=== PATIENT | male | born 1950 | race Caucasian/White ===

== ENCOUNTER → 2017-01-20 | Outpatient (CLI) | payer OTHER ==
[~2017-01-20] VITALS: Ht 188 cm; Wt 140.6 kg
[~2017-01-20] MED LIST: ASPIRIN81 M2 PO; ATORVASTATIN CA40 MG PO; [UNRECOGNIZED DRUG - OTHER] TP
--- NOTE | ~2017-01-20 | CATHLAB ---
[facility] Ida [place] [address] INVASIVE PROCEDURE REPORT Name: VARGAS MORALES Room #: REG [facility]#: [id number] Admission: 01/20/17 Attend Phys: Tao Henry MD Discharge: Date of : 50 Date of Service: 01/20/17 1709 Report #: [id number] THIS REPORT FOR: //name// CC: Tao Cuello DATE OF SERVICE: 01/20/2017 INDICATION: Unstable angina, abnormal stress test. Full risks, benefits and alternatives of cardiac catheterization were explained to the patient. All questions were answered. Informed consent was obtained. A Barbeau test was performed on the right radial artery. The right wrist area was prepped and draped in a sterile manner. Lidocaine was given subcutaneously. A 5-Maltese sheath was inserted into the right radial artery via modified Seldinger technique. Nitroglycerin and verapamil was introduced through the sheath. 5000 units of heparin was given through peripheral IV. CORONARY ANATOMY: Left main is a short segment, with no flow-limiting lesions. The LAD is a moderate to large size caliber vessel, travelling down the anterior wall and wrapping around the apex. There were no flow-limiting lesions in the LAD. There was only mild disease in the mid segment. The left circumflex artery is a moderate to large size caliber vessel, codominant. There is mild disease in the proximal segment, 20%. The first and second obtuse marginal arteries are of moderate size caliber with mild disease proximally. The terminal end of the left circumflex artery is a small caliber vessel with a severe stenosis. Medical therapy is recommended. The RCA supplies a small PDA. There is severe diffuse disease in the mid segment of the PDA. Medical therapy is recommended. A left ventriculogram was not performed in view of a tortuous right subclavian artery. At the end of the procedure, a Vasc band was applied for hemostasis. IMPRESSION: 1. Mild disease in the major epicardial vessels. 2. Severe stenosis in small caliber vessels including the terminal end of the left circumflex artery and PDA. Medical therapy is recommended. By: 1709 2236 Tao Henry MD /nt
[2017-01-20 09:56] VITALS: BP 133/69
[2017-01-20 09:59] LABS: HEMATOCRIT 40.2 % (42.0-52.0); HEMOGLOBIN 13.8 gm/dL (14.0-18.0); MCH 30.7 pg (26.0-34.0); MCHC 34.2 g/dL (28.0-37.0); MCV 89.8 fL (80.0-100.0); RBC 4.48 mil/uL (4.50-6.00); WBC 6.2 thou/uL (4.0-11.0)
[2017-01-20 10:07] LABS: CALCIUM 8.9 mg/dL (8.5-10.1); CREATININE 0.9 mg/dL (0.7-1.3); POTASSIUM 4.1 mmol/L (3.5-5.1)
== END ==
LOC: CATH 01-17 06:39
PROVIDERS: Internal Medicine Cardiovascular Disease
DX: I25.110 Atherosclerotic heart disease of native coronary artery with unstable angina pectoris (principal); R94.39 Abnormal result of other cardiovascular function study; I65.22 Occlusion and stenosis of left carotid artery; C44.91 Basal cell carcinoma of skin, unspecified; Z90.49 Acquired absence of other specified parts of digestive tract

== ENCOUNTER 2017-05-09 11:41 | Emergency (ER) | payer OTHER ==
[~2017-05-09] VITALS: Ht 188 cm; Wt 140.6 kg
--- NOTE | ~2017-05-09 | EKG ---
[place] [address] [facility] [place] [address] ELECTROCARDIOGRAM REPORT Name: VARGAS MORALES [facility] Jolie[facility] [id number] Admission: 05/09/17 Attend Phys: Discharge: 05/09/17 Date of : 50 Report #: [id number] THIS REPORT FOR: //name// [facility] ED Test Date: 2017-05-09 Test Time: 12:23:17 Pat Name: VARGAS MORALES Department: Room: Gender: M Well Service Floor Worker: Bradley CORTEZ : 1950 Requested By: Hair Salter Order Number: [id number] MD: Rodney Giang Measurements Intervals [place] Rate: 115 P: 0 NM: 152 QRS: -59 QRSD: 106 T: 49 QT: 323 QTc: 447 Interpretive Statements Atrial flutter with variable AV conduction Possible Anterolateral infarct, age indeterminate Compared to ECG 05/17/1997 14:50:00 Atrial flutter is replaced sinus rhythm Poor R wave progression is now present Electronically Signed On 05-10-2017 8:23:18 CDT by Rodney Giang [email or web address] <ELECTRONICALLY SIGNED> By: Rodney Giang MD, [facility] 05/10/17 0823 1223 1223 Rodney Giang MD, [facility] /EPI
[2017-05-09 12:45] LABS: ABSOLUTE NEUTROPHILS 4.3 thou/uL (1.4-8.2); BASOPHILS 0.4 % (0.0-2.0); EOSINOPHILS 0.9 % (0.0-3.0); HEMATOCRIT 41.9 % (42.0-52.0); HEMOGLOBIN 14.7 gm/dL (14.0-18.0); LYMPHOCYTES 23.8 % (24.0-44.0); MANUAL DIFF NO; MCH 31.1 pg (26.0-34.0); MCHC 35.1 g/dL (28.0-37.0); MCV 88.7 fL (80.0-100.0); MONOCYTES 8.6 % (1.0-8.0); PLATELET COUNT 210 thou/uL (150-400); POLYS 66.3 % (36.0-66.0); RBC 4.73 mil/uL (4.50-6.00); RDW 13.3 % (10.5-14.5); WBC 6.5 thou/uL (4.0-11.0)
[2017-05-09 13:08] LABS: ALBUMIN 3.8 g/dL (3.4-5.0); ALKALINE PHOSPHATASE 136 U/L (46-116); ANION GAP 8 mmol/L (7-16); BUN 9 mg/dL (7-18); CALCIUM 9.2 mg/dL (8.5-10.1); CHLORIDE 106 mmol/L (98-107); CO2 24 mmol/L (21-32); CREATININE 0.9 mg/dL (0.7-1.3); GLUCOSE 126 mg/dL (74-106); POTASSIUM 3.9 mmol/L (3.5-5.1); SGOT 23 U/L (15-37); SGPT 35 U/L (30-65); SODIUM 138 mmol/L (136-145); TOTAL BILIRUBIN 0.9 mg/dL (<0.1-1.0); TOTAL PROTEIN 7.6 g/dL (6.4-8.2); TROPONIN-I < 0.04 ng/mL (<0.04-0.07)
[2017-05-09] MEDS ORDERED: ANTIVERT25 MG PO (14:38)
== END 2017-05-09 14:54 | disposition home or self-care (01) ==
LOC: ER 11:41
PROVIDERS: Emergency Medicine
DX: R42 Dizziness and giddiness (principal); I25.10 Atherosclerotic heart disease of native coronary artery without angina pectoris; E78.5 Hyperlipidemia, unspecified; G47.30 Sleep apnea, unspecified; Z90.49 Acquired absence of other specified parts of digestive tract; Z85.828 Personal history of other malignant neoplasm of skin

== ENCOUNTER → 2017-09-22 | Outpatient (CLI) | payer OTHER ==
[~2017-09-22] MED LIST changes: +ANTIVERT25 MG PO
--- NOTE | ~2017-09-22 | 2DMMODE ---
[facility] [place] [address] 2 D/M-MODE ECHOCARDIOGRAM Name: VARGAS MORALES Room #: REG [facility]#: [id number] Admission: 09/22/17 Attend Phys: Tao Henry MD Discharge: Date of : 50 Date of Service: 09/22/17 1541 Report #: [id number] THIS REPORT FOR: //name// APPROVED REPORT Study performed: 09/22/2017 13:52:07 EXAM: Comprehensive 2D, Doppler, and color-flow Echocardiogram Patient Location: Out-Patient Status: routine BSA: 2.65 HR: 61 bpm BP: 145/77 mmHg Rhythm: NSR Other Information Study Quality: Good Indications Bradycardia, short of breath. Hx: CAD, HLP 2D Dimensions RVDd: 31.87 mm LVEF(%): 49.58 (>50%) IVSd: 13.27 (7-11mm) LVOT Diam: 22.83 (18-24mm) LVDd: 55.41 mm PWd: 12.82 (7-11mm) Ascending Ao: 42.35 (22-36mm) LVDs: 41.33 (25-40mm) Aortic Root: 38.09 mm Rojo's LVEF: 49.58 % Volumes Left Atrial Volume (Systole) Single Plane 4CH: 84.33 mL Single Plane 2CH: 70.44 mL LA ESV Index: 31.00 mL/m2 Aortic Valve AoV Peak Kirill.: 2.59 m/s AO Peak Gr.: 26.81 mmHg LVOT Max P.37 mmHg AO Mean Gr.: 14.18 mmHg AO V2 Mean: 1.79 m/s LVOT Max V: 1.16 m/s AO V2 VTI: 52.06 cm EMETERIO Vmax: 1.83 cm2 Mitral Valve [facility] [place] [address] 2 D/M-MODE ECHOCARDIOGRAM Name: VARGAS MORALES Room #: [facility]#: [id number] Admission: 09/22/17 Attend Phys: Tao Henry MD Discharge: Date of : 50 Date of Service: 09/22/17 1541 Report #: [id number] E/A Ratio: 0.9 MV Decel. Time: 293.80 ms MV E Max Kirill.: 0.80 m/s MV A Kirill.: 0.93 m/s MV PHT: 85.20 ms IVRT: 87.66 ms Pulmonary Valve PV Peak Kirill.: 1.50 m/s PV Peak Gr.: 9.00 mmHg Pulmonary Vein P Vein S: 0.58 m/s P Vein A: 0.32 m/s P Vein D: 0.45 m/s P Vein A Dur.: 133.8 msec P Vein S/D Ratio: 1.29 Tricuspid Valve TR Peak Kirill.: 2.62 m/s RAP Estimate: 10.00 mmHg TR Peak Gr.: 27.55 mmHg PA Pressure: 38.00 mmHg Left Ventricle The left ventricle is normal size. There is normal LV segmental wall motion. Mild concentric left ventricular hypertrophy. Left ventricular systolic function is normal. LVEF is 55%. Mild diastolic dysfunction is present (impaired relaxation pattern). Right Ventricle The right ventricle is normal size. The right ventricular systolic function is normal. Atria Left atrium is mildly dilated. Right atrium is at the upper limits of normal. Aortic Valve Aortic valve is thickened and calcified. Mild aortic regurgitation. There is mild valvular aortic stenosis. Calculated aortic valve area is 1.8 cm2 with maximum pressure gradient of 27 mmHg and mean pressure gradient of 14 mmHg. Mitral Valve Mitral valve leaflets are mildly thickened. Mild mitral regurgitation. Tricuspid Valve The tricuspid valve is normal in structure. Mild tricuspid [address] [address] 2 D/M-MODE ECHOCARDIOGRAM Name: VARGAS MORALES Room #: [facility]#: [id number] Admission: 09/22/17 Attend Phys: Tao Henry MD Discharge: Date of : 50 Date of Service: 09/22/17 1541 Report #: [id number] regurgitation. Estimated PAP is 35-40mmHg. Pulmonic Valve The pulmonary valve is normal in structure. Trace pulmonic regurgitation. Great Vessels Aortic root measures at the upper limits of normal. Ascending aorta is dilated at 4.2cm. IVC is dilated and collapses >50% with inspiration. Pericardium There is no pericardial effusion. <Conclusion> The left ventricle is normal size. Mild concentric left ventricular hypertrophy. Left ventricular systolic function is normal. Mild diastolic dysfunction is present (impaired relaxation pattern). The right ventricle is normal size. Left atrium is mildly dilated. There is mild valvular aortic stenosis. Mild aortic regurgitation. Mild mitral regurgitation. Mild tricuspid regurgitation. Estimated PAP is 35-40mmHg. <ELECTRONICALLY SIGNED> By: Tao Henry MD 09/22/17 1541 [id number] Tao Henry MD /INF
== END ==
LOC: CV 08-11 06:23
DX: I08.3 Combined rheumatic disorders of mitral, aortic and tricuspid valves (principal); I25.10 Atherosclerotic heart disease of native coronary artery without angina pectoris; E78.5 Hyperlipidemia, unspecified

== ENCOUNTER → 2018-10-26 | Outpatient (CLI) | payer OTHER ==
--- NOTE | 2018-10-26 10:31 | 2DMMODE ---
[facility] [place] [address] 2 D/M-MODE ECHOCARDIOGRAM Name: VARGAS MORALES Room #: REG [facility]#: [id number] ������������� Admission: 10/26/18 ������������� Attend Phys: Tao Henry MD Discharge: ��� ������������� ��� Date of : 50 Date of Service: 10/26/18 1030 �� Report #: [id number] �������� ��������������������������������������������[id number] THIS REPORT FOR: //name// APPROVED REPORT Study performed: 10/26/2018 08:54:46 EXAM: Comprehensive 2D, Doppler, and color-flow Echocardiogram Patient Location: Out-Patient Room #: Echo lab 2 Status: routine BSA: 2.71 HR: 58 bpm BP: 128/78 mmHg Rhythm: Bradycardia Other Information Study Quality: Adequate Indications Cardiomyopathy 2D Dimensions RVDd: 33.70 mm IVSd: 13.63 (7-11mm) LVOT Diam: 23.73 (18-24mm) LVDd: 59.85 mm PWd: 13.28 (7-11mm) Ascending Ao: 31.21 (22-36mm) LVDs: 44.43 (25-40mm) Aortic Root: 31.21 mm IVC: 16.00 mm Volumes Left Atrial Volume (Systole) Single Plane 4CH: 63.82 mL Single Plane 2CH: 61.59 mL LA ESV Index: 26.00 mL/m2 Aortic Valve AoV Peak Kirill.: 1.16 m/s AO Peak Gr.: 5.41 mmHg LVOT Max P.55 mmHg LVOT Max V: 0.80 m/s EMETERIO Vmax: 3.03 cm2 Mitral Valve E/A Ratio: 1.2 MV Decel. Time: 250.82 ms MV E Max Kirill.: 0.71 m/s [facility] [employer] [address] 2 D/M-MODE ECHOCARDIOGRAM Name: VARGAS MORALES Room #: [facility]#: [id number] ������������� Admission: 10/26/18 ������������� Attend Phys: Tao Henry MD Discharge: ��� ������������� ��� Date of : 50 Date of Service: 10/26/18 1030 �� Report #: [id number] �������� ��������������������������������������������[id number] MV A Kirill.: 0.60 m/s MV PHT: 72.74 ms IVRT: 170.70 ms Pulmonary Valve PV Peak Kirill.: 1.42 m/s PV Peak Gr.: 8.04 mmHg Pulmonary Vein P Vein S: 0.54 m/s P Vein A: 0.19 m/s P Vein D: 0.34 m/s P Vein A Dur.: 83.0 msec P Vein S/D Ratio: 1.59 Tricuspid Valve TR Peak Kirill.: 2.56 m/s TR Peak Gr.: 26.22 mmHg PA Pressure: 30.00 mmHg Left Ventricle Left ventricle is mildly dilated. There is normal LV segmental wall motion. Mild concentric left ventricular hypertrophy. The left ventricular systolic function is normal. The left ventricular ejection fraction is within the normal range. LVEF is 50-55%. Right Ventricle The right ventricle is normal size. The right ventricular systolic function is normal. Atria The left atrium size is normal. Right atrium is at the upper limits of normal. Aortic Valve The Aortic valve is sclerotic. Trace aortic regurgitation. There is no aortic valvular stenosis. Mitral Valve The mitral valve is normal in structure. Trace mitral regurgitation. No evidence of mitral valve stenosis. Tricuspid Valve The tricuspid valve is normal in structure. There is trace tricuspid regurgitation. Estimated PAP-30 mmHg. There is no pulmonary hypertension. Pulmonic Valve The pulmonary valve is normal in structure. Trace pulmonic [address] [address] 2 D/M-MODE ECHOCARDIOGRAM Name: VARGAS MORALES Room #: REG [facility]#: [id number] ������������� Admission: 10/26/18 ������������� Attend Phys: Tao Henry MD Discharge: ��� ������������� ��� Date of : 50 Date of Service: 10/26/18 1030 �� Report #: [id number] �������� ��������������������������������������������[id number] regurgitation. Great Vessels The aortic root is normal in size. IVC is normal in size and collapses >50% with inspiration. Pericardium There is no pericardial effusion. <Conclusion> Left ventricle is mildly dilated. Mild concentric left ventricular hypertrophy. The left ventricular systolic function is normal. The left ventricular ejection fraction is within the normal range. The right ventricle is normal size. The left atrium size is normal. The Aortic valve is sclerotic. Trace aortic regurgitation. Trace mitral regurgitation. There is trace tricuspid regurgitation. Estimated PAP-30 mmHg. ��������������������������������������������� <ELECTRONICALLY SIGNED> ���������������������������������������� By: Tao Henry MD ��������������������������������������������� 10/26/18 1030 1030 1030 Tao Henry MD /INF
== END ==
LOC: CV 08:43
DX: I25.10 Atherosclerotic heart disease of native coronary artery without angina pectoris (principal); I34.0 Nonrheumatic mitral (valve) insufficiency

== ENCOUNTER → 2019-10-30 | Outpatient (CLI) | payer OTHER | LOC: SJCVCIMAG 10:07 | DX: R94.31 Abnormal electrocardiogram [ECG] [EKG] (principal); I25.10 Atherosclerotic heart disease of native coronary artery without angina pectoris; I10 Essential (primary) hypertension; E78.00 Pure hypercholesterolemia, unspecified; Z79.82 Long term (current) use of aspirin; Z79.899 Other long term (current) drug therapy ==

== ENCOUNTER → 2020-05-30 | Outpatient (CLI) | payer OTHER | LOC: SJCVC 11:03 → SJCVCIMAG 11:03 | PROVIDERS: ATTEND Internal Medicine Cardiovascular Disease | DX: I08.3 Combined rheumatic disorders of mitral, aortic and tricuspid valves (principal); R94.31 Abnormal electrocardiogram [ECG] [EKG]; I11.9 Hypertensive heart disease without heart failure; I48.91 Unspecified atrial fibrillation; I25.10 Atherosclerotic heart disease of native coronary artery without angina pectoris; E78.00 Pure hypercholesterolemia, unspecified; R53.83 Other fatigue; Z79.899 Other long term (current) drug therapy ==

== ENCOUNTER → 2020-06-11 | Outpatient (CLI) | payer OTHER | LOC: SJCVC 13:30 | PROVIDERS: ATTEND Internal Medicine Cardiovascular Disease | DX: R94.31 Abnormal electrocardiogram [ECG] [EKG] (principal); I25.2 Old myocardial infarction; I48.91 Unspecified atrial fibrillation; I10 Essential (primary) hypertension; E78.5 Hyperlipidemia, unspecified; I25.10 Atherosclerotic heart disease of native coronary artery without angina pectoris; Z79.899 Other long term (current) drug therapy ==

== ENCOUNTER → 2020-07-15 | Outpatient (CLI) | payer OTHER ==
[~2020-07-15] MED LIST changes: +ELIQUIS5 MG PO; +METFORMIN HCL500 M3 PO; +MULTAQ400 MG PO; +TOPROL XL50 MG PO
== END ==
LOC: SJCVC 12:52
PROVIDERS: ATTEND Internal Medicine Cardiovascular Disease
DX: I48.0 Paroxysmal atrial fibrillation (principal); R94.31 Abnormal electrocardiogram [ECG] [EKG]; R00.1 Bradycardia, unspecified; I48.3 Typical atrial flutter; E11.9 Type 2 diabetes mellitus without complications; G47.30 Sleep apnea, unspecified; I25.10 Atherosclerotic heart disease of native coronary artery without angina pectoris; E66.01 Morbid (severe) obesity due to excess calories; I10 Essential (primary) hypertension; Z79.899 Other long term (current) drug therapy

== ENCOUNTER → 2020-07-24 | Outpatient (CLI) | payer OTHER ==
[~2020-07-24] MED LIST changes: -ELIQUIS5 MG PO; -METFORMIN HCL500 M3 PO; -MULTAQ400 MG PO; -TOPROL XL50 MG PO
== END ==
LOC: LAB 10:53
PROVIDERS: ATTEND Internal Medicine Cardiovascular Disease
DX: Z20.828 Contact with and (suspected) exposure to other viral communicable diseases (principal)

== ENCOUNTER → 2020-07-24 | Outpatient (CLI) | payer OTHER ==
[~2020-07-24] MED LIST changes: +ELIQUIS5 MG PO; +METFORMIN HCL500 M3 PO; +MULTAQ400 MG PO; +TOPROL XL50 MG PO
[2020-07-24 09:49] LABS: ABSOLUTE NEUTROPHILS 4.3 thou/uL (1.4-8.2); BASOPHILS 0.7 % (0.0-2.0); EOSINOPHILS 1.8 % (0.0-3.0); HEMATOCRIT 41.6 % (42.0-52.0); HEMOGLOBIN 14.1 gm/dL (14.0-18.0); LYMPHOCYTES 25.2 % (24.0-44.0); MCH 31.5 pg (26.0-34.0); MCHC 33.9 g/dL (28.0-37.0); MCV 92.9 fL (80.0-100.0); MONOCYTES 9.6 % (1.0-8.0); PLATELET COUNT 218 thou/uL (150-400); POLYS 62.7 % (36.0-66.0); RBC 4.48 mil/uL (4.50-6.00); RDW 12.6 % (10.5-14.5); WBC 6.8 thou/uL (4.0-11.0)
[2020-07-24 10:09] LABS: CALCIUM 9.2 mg/dL (8.5-10.1); CREATININE 0.9 mg/dL (0.7-1.3); POTASSIUM 4.5 mmol/L (3.5-5.1); TOTAL BILIRUBIN 0.7 mg/dL (0.2-1.0); TOTAL PROTEIN 7.7 g/dL (6.4-8.2)
== END ==
LOC: CAT 09:09
PROVIDERS: ATTEND Internal Medicine Cardiovascular Disease
DX: Z01.818 Encounter for other preprocedural examination (principal); I25.10 Atherosclerotic heart disease of native coronary artery without angina pectoris; I35.8 Other nonrheumatic aortic valve disorders; M47.814 Spondylosis without myelopathy or radiculopathy, thoracic region; M89.38 Hypertrophy of bone, other site; I48.91 Unspecified atrial fibrillation; Z90.49 Acquired absence of other specified parts of digestive tract

== ENCOUNTER 2020-07-28 06:27 | Observation (INO) | payer OTHER ==
[~2020-07-28] VITALS: Ht 188 cm; Wt 147.9 kg
[2020-07-28] VITALS (16 sets, daily range): BP systolic 98–172; BP diastolic 41–87
--- NOTE | ~2020-07-28 | P ---
[facility] [place] [address] PROCEDURE REPORT Name: VARGAS MORALES Room #: 209-P [facility] Ashish Dave#: [id number] Admission: 07/28/20 Attend Phys: Matt Webb MD Discharge: 07/29/20 Date of : 50 Report #: [id number] THIS REPORT FOR: cc: Jameel Cuello MD, Rene P. MD Couchonnal, Luis F. MD ~ CC: Matt Cuello DATE OF SERVICE: 07/29/2020 PREOPERATIVE DIAGNOSIS: Atrial fibrillation. POSTOPERATIVE DIAGNOSIS: Atrial fibrillation. PROCEDURES PERFORMED: 1. Atrial fibrillation ablation, CPT code 81313. 2. 3D mapping, CPT code 51297. 3. Intracardiac echo, CPT code 11424. HISTORY: The patient is a 70-year-old male with a history of AFib, here for ablation. ANESTHESIA: The patient underwent general anesthesia with no anesthesia-related complications. DESCRIPTION OF PROCEDURE: The patient underwent informed consent. We discussed the details of the procedure including the risks which include but not limited to bleeding, ____ vascular damage, stroke, OH, damage to the bear river conduction system requiring permanent pacemaker as well as cardiac perforation. He understood these risks and is willing to proceed. The patient was brought to the EP laboratory in a fasting and sedated state, prepped and draped in a sterile fashion. We obtained access to the right femoral vein x 3, placing an 8, 9 and 7-Moldovan short sheath using a modified Seldinger technique. Next, under fluoroscopy, decapolar catheter was placed in the coronary sinus and an ICE catheter was placed in the right atrium. Using intracardiac ultrasound, the patient had evidence of two left and two right pulmonary veins and a thin interatrial septum. The patient was prepped for transseptal and was systemically heparinized. Next, an attempt at transseptal was performed. Of note, he did have a very rotated heart. Fluoroscopically, the HE projection and my SL1 sheath was in a very posterior direction to obtain transseptal. I made two attempts at transseptal with my SL1 needle and a [place] needle and I was able to cross the septum, but I could not advance the sheath into the left atrium. A third attempt was made and I was able to get the wire into the left superior pulmonary vein, but could not advance the SL1 sheath. I [facility] [address] [place] [address] PROCEDURE REPORT Name: VARGAS MORALES Room #: 209-P [facility] Ashish Dave#: [id number] Admission: 07/28/20 Attend Phys: Matt Webb MD Discharge: 07/29/20 Date of : 50 Report #: [id number] therefore exchanged to the cryo sheath, but I had difficulties advancing the cryo sheath into the right groin. I ended up losing transseptal access with my needle. I therefore used a 14-Moldovan short sheath to up-dilate the right femoral vein and then re-performed my transseptal using an SL1 sheath and then exchanged for the cryo sheath and advanced this into the left atrium. At baseline, the patient was in sinus rhythm. Next, I placed the cryo balloon into the left atrium and we started by isolating the pulmonary veins. I performed an initial 90-second freeze which did not result in isolation. I performed a second freeze of 90 seconds and came off early. I performed two 4-minute freezes which did not result in isolation and performed a 130-second freeze which did not result in isolation. I therefore decided to move to the left inferior pulmonary vein and performed a 4-minute freeze, which resulted in isolation of 40 seconds and performed an additional 4-minute freeze, this time with the balloon more at the angelica between the left superior and left inferior pulmonary veins hoping that this would isolate the left inferior vein. I went and rechecked the left superior and it remained connected; therefore, I decided to move to the right-sided vein and performed two 4-minute freezes and the vein isolated during the second freeze within 40 seconds. The right inferior pulmonary vein underwent two 3-minute freezes. This did not result in isolation and I performed a third freeze anchored lower on the vein, which resulted in isolation in 90 seconds so the third freeze was of 4 minutes' duration. I then went back to the left superior pulmonary vein and performed several additional freezes that did not result in isolation. I had great pressure waveforms on all of these freezes, but it just would not isolate. Therefore, I decided to perform some injections and this showed that I had a superior leak and I had to push the balloon superiorly and clock it posteriorly and finally on the final freeze, I isolated the vein within 71 seconds and the final freeze was of 270-second duration. Post-ablation, a repeat 3D voltage map was created and this showed wide circumferential ablation of all the pulmonary veins. There were no other arrhythmias induced and therefore the procedure was concluded. The patient received systemic protamine and once the ACT was within acceptable range, catheters and sheaths were pulled. A [id number] suture was deployed to the right groin for femoral vein hemostasis. The patient awoke, neurologically and hemodynamically intact. No complications and no significant bleeding. CONCLUSION: Successful atrial fibrillation ablation with isolation of the pulmonary veins. By: 0830 2216 Matt Webb MD /adam
[~2020-07-28 06:27] MED LIST changes: -ELIQUIS5 MG PO; -METFORMIN HCL500 M3 PO; -MULTAQ400 MG PO; -TOPROL XL50 MG PO
[2020-07-28 07:39] LABS: ABSOLUTE NEUTROPHILS 4.2 thou/uL (1.4-8.2); BASOPHILS 0.9 % (0.0-2.0); EOSINOPHILS 1.8 % (0.0-3.0); HEMOGLOBIN 14.1 gm/dL (14.0-18.0); LYMPHOCYTES 23.7 % (24.0-44.0); MCH 31.1 pg (26.0-34.0); MCHC 33.5 g/dL (28.0-37.0); MCV 92.8 fL (80.0-100.0); MONOCYTES 8.4 % (1.0-8.0); PLATELET COUNT 229 thou/uL (150-400); POLYS 65.2 % (36.0-66.0); RBC 4.53 mil/uL (4.50-6.00); RDW 12.9 % (10.5-14.5); WBC 6.4 thou/uL (4.0-11.0)
[2020-07-28 07:42] LABS: CALCIUM 9.3 mg/dL (8.5-10.1)
[2020-07-28 07:48] LABS: ALBUMIN 3.9 g/dL (3.4-5.0); TOTAL BILIRUBIN 0.7 mg/dL (0.2-1.0); TOTAL PROTEIN 7.7 g/dL (6.4-8.2)
[2020-07-28 07:53] LABS: APTT 29.1 Seconds (24.5-32.8); INR 1.1; PROTIME 11.4 Seconds (9.3-11.4)
[2020-07-28] MEDS ORDERED: ELIQUIS5 MG PO (07:59)
[2020-07-28] MEDS ORDERED: MULTAQ400 MG PO (08:00)
[2020-07-28] MEDS ORDERED: METFORMIN HCL500 M3 PO (08:01)
[2020-07-28] MEDS ORDERED: TOPROL XL50 MG PO (08:03)
--- NOTE | 2020-07-28 19:37 | NUR ---
PT ADMITED FROM TRANSFORMATION MANAGER. ADMISSION HX AND ASSESSMENT COMPLETED. RIGHT GROIN INCISION C/D/I. NO HEMATOMA NOTED. DENIED HAVING PAIN. ANI BLOOD NOTED IN THE ANDRES BAG. DR. CASEY NOTIFIED. ANDRES D/C. PT ENCOURAGED TO DRINK ALOT OF WATER. SR ON TELE.
[2020-07-29 00:30] VITALS: BP 119/52
[2020-07-29 03:40] VITALS: BP 132/64
[2020-07-29 04:04] VITALS: BP 132/64
[2020-07-29 04:17] LABS: CALCIUM 8.7 mg/dL (8.5-10.1); CREATININE 0.9 mg/dL (0.7-1.3); POTASSIUM 3.9 mmol/L (3.5-5.1)
[2020-07-29 05:08] LABS: HEMATOCRIT 37.5 % (42.0-52.0); HEMOGLOBIN 12.4 gm/dL (14.0-18.0); MCH 31.3 pg (26.0-34.0); MCHC 33.2 g/dL (28.0-37.0); MCV 94.4 fL (80.0-100.0); RBC 3.97 mil/uL (4.50-6.00); RDW 13.1 % (10.5-14.5); WBC 11.8 thou/uL (4.0-11.0)
--- NOTE | 2020-07-29 07:22 | NUR ---
PATIENT SLEPT WITH CPAP MOST OF THE NIGHT. NO COMPLAINTS OF PAIN OR SOA. UP AD MARCELLO TO BATHROOM. VSS POST CATH. GROIN SITE CDI. GAVE MEDS PER MAR. CONTINUING TO ASSESS ACCORDING TO POC.
--- NOTE | 2020-07-29 07:35 | NUR ---
PATIENT ARRIVED FROM ER PER CART. ASSISTED TO WALK TO ROOM WITH STANDBY ASSIST OF ONE. TELEMETRY ON SHOWING AFIB WITH PVC. ADMISSION STARTED. CONTINUE TO ASSES CLOSELY.
[2020-07-29 08:00] VITALS: BP 130/66
--- NOTE | 2020-07-29 10:35 | NUR ---
ASSESSMENT CHARTED. PT ALERT AND ORIENTED. VSS. DENIED HAVING PAIN OR DISCOMFORT. SR ON TELE. RIGHT GROIN INCISION C/D/I. SEEN BY DR. CASEY ORDERS GIVEN TO DISCHARGE PT TO HOME. DISCHARGE INSTRUCTIONS GIVEN TO PT. PT VERBERLISED UNDERSTANDING.
== END 2020-07-29 10:01 | disposition home or self-care (01) ==
LOC: CATH 06:27 → 2N 12:34 → CATH 13:24 → 2N 07-29 10:01
PROVIDERS: Nurse Practitioner; ADMIT Internal Medicine Cardiovascular Disease; ATTEND Internal Medicine Cardiovascular Disease
DX: I48.91 Unspecified atrial fibrillation (principal); I25.10 Atherosclerotic heart disease of native coronary artery without angina pectoris; I10 Essential (primary) hypertension; E78.5 Hyperlipidemia, unspecified; E66.9 Obesity, unspecified; G47.33 Obstructive sleep apnea (adult) (pediatric); R31.9 Hematuria, unspecified
CPT/HCPCS: 62110; 62900; 65020; 65040; 65130; 70005

== ENCOUNTER → 2020-08-05 | Outpatient (CLI) | payer OTHER ==
[~2020-08-05] MED LIST changes: +ELIQUIS5 MG PO; +METFORMIN HCL500 M3 PO; +MULTAQ400 MG PO; +TOPROL XL50 MG PO
== END ==
LOC: SJCVC 09:27
PROVIDERS: ATTEND Internal Medicine Cardiovascular Disease
DX: I48.91 Unspecified atrial fibrillation (principal); I44.0 Atrioventricular block, first degree; I49.49 Other premature depolarization; R94.31 Abnormal electrocardiogram [ECG] [EKG]; I25.10 Atherosclerotic heart disease of native coronary artery without angina pectoris; E11.9 Type 2 diabetes mellitus without complications; I10 Essential (primary) hypertension; Z79.82 Long term (current) use of aspirin; Z79.899 Other long term (current) drug therapy

== ENCOUNTER → 2020-09-01 | Outpatient (CLI) | payer OTHER | LOC: SJCVC 09:45 | PROVIDERS: ATTEND Internal Medicine Cardiovascular Disease | DX: R94.31 Abnormal electrocardiogram [ECG] [EKG] (principal); I48.91 Unspecified atrial fibrillation; R00.1 Bradycardia, unspecified; E78.5 Hyperlipidemia, unspecified; G47.30 Sleep apnea, unspecified; E11.9 Type 2 diabetes mellitus without complications; E66.9 Obesity, unspecified; I25.10 Atherosclerotic heart disease of native coronary artery without angina pectoris; I10 Essential (primary) hypertension; E78.00 Pure hypercholesterolemia, unspecified; R60.9 Edema, unspecified; Z79.82 Long term (current) use of aspirin; Z79.84 Long term (current) use of oral hypoglycemic drugs; Z79.899 Other long term (current) drug therapy; Z95.0 Presence of cardiac pacemaker ==

== ENCOUNTER → 2020-10-30 | Outpatient (CLI) | payer OTHER | LOC: SJCVC 13:53 | PROVIDERS: ATTEND Internal Medicine Cardiovascular Disease | DX: R94.31 Abnormal electrocardiogram [ECG] [EKG] (principal); I25.2 Old myocardial infarction; I44.0 Atrioventricular block, first degree; I11.9 Hypertensive heart disease without heart failure; I48.91 Unspecified atrial fibrillation; I25.10 Atherosclerotic heart disease of native coronary artery without angina pectoris; E11.9 Type 2 diabetes mellitus without complications; G47.33 Obstructive sleep apnea (adult) (pediatric); Z79.82 Long term (current) use of aspirin; Z79.01 Long term (current) use of anticoagulants; Z90.49 Acquired absence of other specified parts of digestive tract; Z98.890 Other specified postprocedural states; Z79.899 Other long term (current) drug therapy; Z82.49 Family history of ischemic heart disease and other diseases of the circulatory system; Z83.3 Family history of diabetes mellitus ==

== ENCOUNTER → 2021-03-03 | Outpatient (CLI) | payer OTHER | LOC: SJCVC 11:48 | PROVIDERS: ATTEND Internal Medicine Cardiovascular Disease | DX: R94.31 Abnormal electrocardiogram [ECG] [EKG] (principal); R00.1 Bradycardia, unspecified; I25.10 Atherosclerotic heart disease of native coronary artery without angina pectoris; I48.0 Paroxysmal atrial fibrillation; E78.00 Pure hypercholesterolemia, unspecified; I10 Essential (primary) hypertension; E66.9 Obesity, unspecified; G47.33 Obstructive sleep apnea (adult) (pediatric); Z79.82 Long term (current) use of aspirin; Z79.899 Other long term (current) drug therapy ==

== ENCOUNTER → 2021-08-20 | Outpatient (CLI) | payer OTHER ==
--- NOTE | 2021-08-21 12:48 | P ---
[facility] Ida [place] [address] PROCEDURE REPORT Name: VARGAS MORALES Room #: REG [facility] Jolie#: [id number] Admission: 08/20/21 Attend Phys: Matt Webb MD Discharge: Date of : 50 Report #: [id number] THIS REPORT FOR: cc: Jameel Cuello MD, Rene P. MD Couchonnal, Luis F. MD ~ DATE OF SERVICE: 08/20/2021 PROCEDURE: Implantable loop recorder insertion. PREOPERATIVE DIAGNOSES: 1. AFib. 2. Palpitations. DESCRIPTION OF PROCEDURE: The patient underwent informed consent. He was prepped in a standard fashion. I injected lidocaine at the incision site. Incision was made. Device injected, tested and found to be functioning normally. Single layer of suture was performed. A dressing was placed. No complications. New implanted device was a [employer] LINQ CONCLUSION: Successful implantation of an implantable loop recorder. <ELECTRONICALLY SIGNED> By: Matt Webb MD 08/21/21 1248 1122 2206 Matt Webb MD /nt
== END | disposition home or self-care (01) ==
LOC: CATH 08-19 07:15
PROVIDERS: ATTEND Internal Medicine Cardiovascular Disease
DX: I48.91 Unspecified atrial fibrillation (principal); R00.2 Palpitations; Z98.890 Other specified postprocedural states; Z79.899 Other long term (current) drug therapy; Z79.01 Long term (current) use of anticoagulants

== ENCOUNTER → 2021-09-08 | Outpatient (CLI) | payer OTHER | LOC: SJCVC 09:52 | PROVIDERS: ATTEND Internal Medicine Cardiovascular Disease | DX: R94.31 Abnormal electrocardiogram [ECG] [EKG] (principal); R00.1 Bradycardia, unspecified; I44.0 Atrioventricular block, first degree; I25.10 Atherosclerotic heart disease of native coronary artery without angina pectoris; I10 Essential (primary) hypertension; I48.0 Paroxysmal atrial fibrillation; E78.00 Pure hypercholesterolemia, unspecified; G47.30 Sleep apnea, unspecified; G47.33 Obstructive sleep apnea (adult) (pediatric); E11.9 Type 2 diabetes mellitus without complications; E78.5 Hyperlipidemia, unspecified; Z79.82 Long term (current) use of aspirin; Z79.899 Other long term (current) drug therapy ==

== ENCOUNTER → 2021-09-14 | Outpatient (CLI) | payer OTHER ==
[~2021-09-14] VITALS: Ht 188 cm; Wt 148.6 kg
[2021-09-14 09:02] VITALS: BP 126/67
--- NOTE | 2021-09-14 15:35 | CATHLAB ---
[facility] [place] [address] INVASIVE PROCEDURE REPORT Name: CARMEN,VARGAS W Room #: REG [facility]#: [id number] Admission: 09/14/21 Attend Phys: Tao Henry MD Discharge: Date of : 50 Report #: [id number] THIS REPORT FOR: cc: Jameel Cuello MD, Rene P. MD Park, Jin S. MD ~ APPROVED REPORT Study performed: 09/14/2021 13:57:00 Patient Details Patient Status: Out-Patient Room #: The patient is a 71 year-old male Event Personnel Tao Henry Industrial Management Teacher, Juani Palmer RTR Monitor, Trace Cason RTR ScrubJesus Jessica RN lead nuclear medicine technologist Performed Art Access - R femoral artery* Left Heart Cath w/or w/o Coronaries [id number] [facility] Hemostasis with Manual pressure 49461 Initial Mod Sed Same Phys/QHP Gr5y 345655 08745 Mod Sed Same Phys/QHP Ea 239193 Indication Dyspnea, Positive stress test, Chest pain Risk Factors Obesity, HypercholesterolemiaPhysical Activity, Coronary Artery DiseaseHypertension Procedure Narrative The Right Groin^ was infiltrated with 1% Lidocaine subcutaneous anesthesia. A PINNACLE 4FR Sheath #[id number] sheath was inserted into the RFA^. Coronary angiography was performed using coronary diagnostic catheters. The right coronary system was accessed and visualized with a AR MOD catheter. The left coronary system was accessed and visualized with a JL5 catheter. The left ventricle was accessed and visualized with a ANGLED PIGTAIL catheter. Left ventriculogram was performed in 30 degree projection. Hemostasis was obtained with manual pressure following sheath removal without any complications. The patient tolerated the procedure well and there were no complications associated with the procedure. There was no hematoma. [facility] [address] [place] [address] INVASIVE PROCEDURE REPORT Name: VARGAS MORALES Room #: REG [facility]#: [id number] Admission: 09/14/21 Attend Phys: Tao Henry MD Discharge: Date of : 50 Report #: [id number] Intraoperative Conscious Sedation Sedation start time: 14:29 Case end Time: 15:10 Fentanyl 50 mcg Versed 1 mg Fluoro Time: 8.50 minutes Dose: DAP 17055.20 cGycm2 1836 mGy Contrast Type and Amount: Omnipaque 135 ml Coronary Angiography The patient's coronary anatomy is right dominant. Diagnostic Cath Left Main Left main artery is a large-caliber vessel, appears angiographically normal. LAD The LAD is a moderate-sized caliber vessel, traverses the anterior wall and wraps around the apex. There is mild diffuse disease in the midsegment, 30%. Diagonal 1 This is a small to moderate-sized caliber vessel, patent with no flow-limiting lesions. Circumflex The left circumflex artery a moderate-sized caliber vessel, supplying 3 OM vessels. There is mild disease in the proximal left circumflex artery, 20%. There is a total occlusion in the distal left circumflex artery just after giving off the third obtuse marginal artery. OM1 This is a moderate-sized caliber vessel, with mild disease proximally. OM2 This is a moderate-sized caliber vessel, patent with no flow-limiting lesions. OM3 This is a small caliber vessel, patent with no flow-limiting lesions. Right Coronary There is mild to moderate disease in the mid RCA, 40 to 50%. R PDA There is a total occlusion in the proximal PDA. The distal PDA is partially filled via collateral circulation. RPLV This is a small caliber vessel, patent with no flow-limiting lesions. Left Ventriculography The left ventricle is mildly dilated in size with Diminished contractility. The left ventricular ejection fraction is estimated to be 45-50%. There is focal hypokinesis of the mid to apical inferior segment. Hemodynamics [facility] [address] [place] [address] INVASIVE PROCEDURE REPORT Name: VARGAS MORALES Room #: REG [facility]#: [id number] Admission: 09/14/21 Attend Phys: Tao Henry MD Discharge: Date of : 50 Report #: [id number] The aortic pressure is 158/70 mmHg with a mean of 112 mmHg. The left ventricular pressure is 170/5 mmHg with a mean of mmHg. The left ventricular end diastolic pressure is 20 mmHg. Conclusion 1. There is mild disease in the mid LAD. 2. There is a total occlusion in the distal segment of the left circumflex artery. 3. There is a total occlusion in the PDA. The distal PDA is partially filled via collateral circulation. 4. There is mild to moderate disease in the RCA. 5. There is mild segmental LV dysfunction, EF 45 to 50%. 6. Recommend aggressive risk factor management and guideline directed medical therapy. <ELECTRONICALLY SIGNED> By: Tao Henry MD 09/14/21 1534 1534 1534 Tao Henry MD /INF
== END | disposition home or self-care (01) ==
LOC: CATH 07:18
PROVIDERS: ATTEND Internal Medicine Cardiovascular Disease
DX: R07.9 Chest pain, unspecified (principal); R94.39 Abnormal result of other cardiovascular function study; I10 Essential (primary) hypertension; E78.5 Hyperlipidemia, unspecified; I25.10 Atherosclerotic heart disease of native coronary artery without angina pectoris; E66.9 Obesity, unspecified; G47.30 Sleep apnea, unspecified; Z98.890 Other specified postprocedural states; Z79.899 Other long term (current) drug therapy; Z85.828 Personal history of other malignant neoplasm of skin; Z79.01 Long term (current) use of anticoagulants

== ENCOUNTER → 2021-10-05 | Outpatient (CLI) | payer OTHER | END | disposition home or self-care (01) | LOC: SJCVC 11:13 | PROVIDERS: ATTEND Internal Medicine Cardiovascular Disease | DX: R94.31 Abnormal electrocardiogram [ECG] [EKG] (principal); R00.1 Bradycardia, unspecified; I44.0 Atrioventricular block, first degree; I10 Essential (primary) hypertension; I25.10 Atherosclerotic heart disease of native coronary artery without angina pectoris; I48.0 Paroxysmal atrial fibrillation; E78.00 Pure hypercholesterolemia, unspecified; R60.9 Edema, unspecified; C44.81 Basal cell carcinoma of overlapping sites of skin; H91.93 Unspecified hearing loss, bilateral; G47.33 Obstructive sleep apnea (adult) (pediatric); E11.9 Type 2 diabetes mellitus without complications; Z79.899 Other long term (current) drug therapy; Z79.82 Long term (current) use of aspirin; Z98.890 Other specified postprocedural states ==